=== PATIENT | male | born 1980 | race Caucasian/White ===

== ENCOUNTER 2018-07-14 14:29 | Inpatient (IN) | payer OTHER ==
[2018-07-14 15:14] VITALS: BMI 26.4
--- NOTE | 2018-07-14 17:55 | HP ---
COWS - Scale Resting Pulse: 1= [place] 81-100 Sweatin=Flushed/Facial Moisture Restless Observation: 1= Difficult to Sit Still Pupil Size: 0= Normal to Room Light Bone or Joint Aches: 1= Mild Discomfort Runny Nose/ Eye Tearin= Runny Nose/Eyes GI Upset > 30mins: 1= Stomach Cramp Tremor Observation: 2= Slight Tremor Visible Yawning Observation: 1= 1-2x During Session Anxiety or Irritability: 2=Irritable/Anxious Goose Flesh Skin: 0=Smooth Skin COWS Score: 13 Admission ROS S - [facility] Chief Complaint: opioid withdrawal symptoms Allergies/Adverse Reactions: Allergies Allergy/AdvReac Type Severity Reaction Status Date / Time No Known Allergies Allergy Verified 07/14/18 16:46 History of Present Illness: 37 yo male with hx of heroin (IV) and marijuana dependence is here seeking detox. Last detox two months at [facility]. PMHX: Hep C (untreated), anxiety. Denies suicidal / homicidal ideation or hx of suicide attempts. Overdose x April 2018. Denies hx of seizures or blackouts. Denies any legal troubles at this time. Longest period of sobriety three years during 2004 -2007. Exam Limitations: No Limitations - Ebola screening Have you traveled outside of the country in the last 21 days: No Have you had contact with anyone from an Ebola affected area: No Have you been sick,other than usual withdrawal symptoms: No Do you have a fever: No - Review of Systems Constitutional: Chills, Unintentional Wgt. Loss (15 lbs in past two months) EENT: reports: Nose Congestion Respiratory: reports: No Symptoms reported Cardiac: reports: No Symptoms Reported GI: reports: Poor Appetite, Poor Fluid Intake, Abdominal cramping : reports: No Symptoms Reported Musculoskeletal: reports: Back Pain Integumentary: reports: Pruritus Neuro: reports: No Symptoms reported Endocrine: reports: Increased Thirst Hematology: reports: No Symptoms Reported Psychiatric: reports: Orientated x3, Anxious Other Systems: Reviewed and Negative Patient History - Patient Medical History Hx Anemia: No Hx Asthma: No Hx Chronic Obstructive Pulmonary Disease (COPD): No Hx Cancer: No Hx Cardiac Disorders: No Hx Congestive Heart Failure: No Hx Hypertension: No Hx Pacemaker: No HX Cerebrovascular Accident: No Hx Seizures: No Hx Dementia: No Hx Diabetes: No Hx Gastrointestinal Disorders: No Hx Liver Disease: Yes (Hep C untreated ) Hx Genitourinary Disorders: No Hx Sexually Transmitted Disorders: No Hx Renal Disease (ESRD): No Hx Thyroid Disease: No Hx Human Immunodeficiency Virus (HIV): No (Last tested one year ago Neg results ) Hx Hepatitis C: Yes (untreated ) Hx Depression: Yes Hx Suicide Attempt: No Hx Bipolar Disorder: No Hx Schizophrenia: No - Patient Surgical History Past Surgical History: No Hx Neurologic Surgery: No Hx Cataract Extraction: No Hx Cardiac Surgery: No Hx Lung Surgery: No Hx Breast Surgery: No Hx Breast Biopsy: No Hx Abdominal Surgery: No Hx Appendectomy: No Hx Cholecystectomy: No Hx Genitourinary Surgery: No Hx Section: No Hx Orthopedic Surgery: No Anesthesia Reaction: No - PPD History Previous Implant?: Yes Documented Results: Negative w/o proof Implanted On Prior [facility] Admission?: No PPD to be Administered?: Yes - Smoking Cessation Smoking history: Current every day smoker Have you smoked in the past 12 months: Yes Aproximately how many cigarettes per day: 10 Hx Chewing Tobacco Use: No Initiated information on smoking cessation: Yes 'Breaking Loose' booklet given: 07/14/18 - Substance & Tx. History Hx Alcohol Use: No Hx Substance Use: Yes Substance Use Type: Heroin, Marijuana Hx Substance Use Treatment: Yes (Last detox two months at [facility]) - Substances Abused Heroin Route: Injection Frequency: Daily Amount used: 8-10 bags Age of first use: 21 Date of Last Use: 07/14/18 (4 AM ) Marijuana Route: Smoking Frequency: 1-2 times per week Amount used: $10 Age of first use: 12 Date of Last Use: 07/14/18 Family Disease History - Family Disease History Family History: Denies Admission Physical Exam BHS - Vital Signs Vital Signs: Vital Signs - 24 hr 07/14/18 15:12 Temperature 97.4 F L Pulse Rate 86 Respiratory 18 Rate Blood Pressure 109/59 L - Physical General Appearance: Yes: Disheveled, Mild Distress, Sweating, Anxious HEENTM: Yes: EOMI, Hearing grossly Normal, Normal ENT Inspection, Normocephalic , Normal Voice, LAURIE, Pharynx Normal, Tm's normal, Rhinorrhea Respiratory: Yes: Chest Non-Tender, Lungs Clear, Normal Breath Sounds, No Respiratory Distress, No Accessory Muscle Use Neck: Yes: Within Normal Limits Breast: Yes: Breast Exam Deferred Cardiology: Yes: Regular Rhythm, Regular Rate Abdominal: Yes: Normal Bowel Sounds, Non Tender, Flat, Soft Genitourinary: Yes: Within Normal Limits Back: Yes: Normal Inspection Extremities: Yes: Normal Capillary Refill, Normal Inspection, Normal Range of Motion, Non-Tender Neurological: Yes: money counter II-XII NML intact, Fully Oriented, Alert, Motor Strength 5/5, Depressed Affect Integumentary: Yes: Normal Color, Warm, Diaphoresis, Track Ch[place] (bilateral) Lymphatic: Yes: Within Normal Limits - Addiitonal Findings: bilateral antecubital fossa, no infection process - Diagnostic (1) Opioid dependence with withdrawal Current Visit: Yes Status: Acute (2) IVDU (intravenous drug user) Current Visit: Yes Status: Acute (3) Hepatitis C Current Visit: Yes Status: Chronic Qualifiers: Viral hepatitis chronicity: chronic Hepatic coma status: without hepatic coma Qualified Code(s): B18.2 - Chronic viral hepatitis C (4) Marijuana dependence Current Visit: Yes Status: Acute Cleared for Admission [facility] - Detox or Rehab [facility] Level of Care: Medically Managed Detox Regimen/Protocol: Methadone [facility] Breath Alcohol Content Breath Alcohol Content: 0 Urine Drug Screen - Results Drug Screen Negative: No Urine Drug Screen Results: THC-Marijuana, OPI-Opiates, BAR-Barbiturates, MTD- Methadone, FEN-Fentanyl
[2018-07-14] MEDS ORDERED: MENTHOL/PHENOL 1 EACH UD MM PRN (17:58)
[2018-07-14] MEDS ORDERED: NICOTINE POLACRILEX 2 MG GUM BC PRN (17:58)
[2018-07-14] MEDS ORDERED: LOPERAMIDE HCL 2 MG CAPSULE PO PRN (17:58)
[2018-07-14] MEDS ORDERED: P-EPHED 60MG/TRIPROLIDI 2.5MG TABLET PO PRN (17:58)
[2018-07-14] MEDS ORDERED: MAGNESIUM HYDROX 2400MG/30ML ORAL SUSPENSION 30 ML CUP PO PRN (17:58)
[2018-07-14] MEDS ORDERED: guaiFENesin/D-METHORPHAN HB 10 ML UNIT-DOSE CUPS PO PRN (17:58)
[2018-07-14] MEDS ORDERED: MAG HYDROX/AL HYDROX/SIMETH 30 ML UNIT-DOSE CUP PO PRN (17:58)
[2018-07-14] MEDS ORDERED: MAGNESIUM CITRATE 300 ML BOTTLE PO PRN (17:58)
[2018-07-14] MEDS ORDERED: METHADONE HCL 10 MG TABLET (FOR DETOX USE ONLY) PO ONE ×2 (18:30→23:00)
[2018-07-14] MEDS: diazePAM 5 MG TABLET PO PRN (18:57)
[2018-07-14] MEDS: THIAMINE HCL 100 MG TABLET (FP) PO SCH (22:19)
[2018-07-14] MEDS: MELATONIN 5 MG TABLETS PO PRN (22:20)
[2018-07-15 00:42] LABS: URINE APPEARANCE CLEAR; URINE BILIRUBIN NEGATIVE (<2.0 mg/dL); URINE COLOR YELLOW; URINE GLUCOSE (UA) NEGATIVE (NEGATIVE); URINE KETONE NEGATIVE (NEGATIVE); URINE LEUK ESTERASE NEGATIVE (NEGATIVE); URINE NITRITE NEGATIVE (NEGATIVE); URINE PROTEIN NEGATIVE (NEGATIVE)
[2018-07-15] MEDS: IBUPROFEN 400 MG TABLET (FP) PO PRN ×3 (06:36→22:57)
[2018-07-15] MEDS: diazePAM 5 MG TABLET PO PRN ×3 (06:36→22:15)
--- NOTE | 2018-07-15 07:39 | CONSULT ---
[facility] Psychiatric Consult - Data Date of interview: 07/15/18 Admission source: [facility] Identifying data: This is a 37 years old male, single, domiciled, unemployed, on PA support, with no psychiatric hospitalization history, with history of Heroin (IV), Marijuana and Nicotine dependence is here seeking detox and reportinf withdrawal symptoms.. Last detox two months at [facility]. Substance Abuse History: Smoking history: Current every day smoker. Have you smoked in the past 12 months: Yes. Aproximately how many cigarettes per day: 10. Hx Chewing Tobacco Use: No. Initiated information on smoking cessation: Yes. 'Breaking Loose' booklet given: 07/14/18. - Substance & Tx. History. Hx Alcohol Use: No. Hx Substance Use: Yes. Substance Use Type: Heroin, Marijuana. Hx Substance Use Treatment: Yes (Last detox two months at [facility] - Substances Abused. Heroin. Route: Injection. Frequency: Daily. Amount used: 8-10 bags. Age of first use: 21. Date of Last Use: (4 AM ). Marijuana. Route: Smoking. Frequency: 1-2 times per week. Amount used: $10. Age of first use: 12. Date of Last Use: 07/14/18 Medical History: HepC+ Psychiatric History: Ptient reports history of deporession, reports taking prior to admission: Lexapro 5mg poqd. Reports no psychiatric hospitalization history, reports no suicidal and homicidal history as well. Physical/Sexual Abuse/Trauma History: Denies Additional Comment: Lexapro 5mg poqd Mental Status Exam - Mental Status Exam Alert and Oriented to: Person Cognitive Function: Fair Patient Appearance: Unkempt Mood: Sad Affect: Flat Speech Pattern: Delayed Voice Loudness: Mildly Soft/Quiet Thought Process: Circumstantial Thought Disorder: Being Controlled Hallucinations: Denies Suicidal Ideation: Denies Homicidal Ideation: Denies Insight/Judgement: Fair Sleep: Difficulty falling asleep Appetite: Fair Muscle strength/Tone: Normal Gait/Station: Shuffling Additional Comments: Lexapro 5mg poqd Psychiatric Findings - Problem List ([place] 1, 2,3) (1) Nicotine dependence Current Visit: Yes Status: Acute (2) Nicotine dependence, chewing tobacco, in remission Current Visit: Yes Status: Acute (3) Marijuana dependence Current Visit: Yes Status: Acute (4) Opioid dependence with withdrawal Current Visit: Yes Status: Acute (5) Hepatitis C Current Visit: Yes Status: Chronic Qualifiers: Viral hepatitis chronicity: chronic Hepatic coma status: without hepatic coma Qualified Code(s): B18.2 - Chronic viral hepatitis C - Initial Treatment Plan Initial Treatment Plan: Lexapro 5mg poqd
[2018-07-15] MEDS ORDERED: METHADONE HCL 10 MG TABLET (FOR DETOX USE ONLY) PO ONE (10:00)
[2018-07-15] MEDS: PRENATAL VITAMINS W/ FOLIC ACID TABLET (FP) PO SCH (10:14)
[2018-07-15] MEDS: NICOTINE 14 MG/24 HOURS TOPICAL PATCH TD SCH (10:14)
[2018-07-15] MEDS: ESCITALOPRAM OXALATE 10 MG TABLET (FP) PO SCH (10:15)
[2018-07-15 10:22] LABS: HEMATOCRIT 38.9 % (35.4-49); HEMOGLOBIN 12.7 GM/dL (11.7-16.9); MCH 29.2 pg (25.7-33.7); MCHC 32.5 g/dl (32.0-35.9); MEAN CELL VOLUME 89.8 fl (80-96); MEAN PLT VOLUME 7.8 fl (7.5-11.1); PLATELET COUNT 342 K/MM3 (134-434); RBC 4.33 M/mm3 (4.00-5.60); RDW 14.1 % (11.9-15.9); WHITE BLOOD COUNT 5.1 K/mm3 (4.0-10.0)
[2018-07-15 10:27] LABS: ALBUMIN 3.2 g/dl (3.4-5.0); ALK PHOS 94 U/L (45-117); ANION GAP 9 MMOL/L (8-16); BILIRUBIN,TOTAL 0.7 mg/dL (0.2-1); BLOOD UREA NITROGEN 21 mg/dL (7-18); CALCIUM 8.6 mg/dL (8.5-10.1); CHLORIDE 105 mmol/L (98-107); CO2 27 mmol/L (21-32); CREATININE 0.9 mg/dL (0.55-1.3); GLUCOSE,RANDOM 109 mg/dL (74-106); SGOT/AST 53 U/L (15-37); SGPT/ALT 49 U/L (13-61); SODIUM 142 mmol/L (136-145)
--- NOTE | 2018-07-15 12:53 | PN ---
[facility] COWS - Scale Resting Pulse: 1= [place] 81-100 Sweatin= Chills/Flushing Restless Observation: 3= Extraneous Movement Pupil Size: 0= Normal to Room Light Bone or Joint Aches: 2= Severe Diffuse Aches Runny Nose/ Eye Tearin= Runny Nose/Eyes GI Upset > 30mins: 2= Nausea/Diarrhea Tremor Observation of Outstretched Hands: 2= Slight Tremor Visible Yawning Observation: 1= 1-2x During Session Anxiety or Irritability: 2=Irritable/Anxious Goose Flesh Skin: 0=Smooth Skin COWS Score: 16 S Progress Note (SOAP) Subjective: Feeling tired, interrupted sleep, sweating Objective: 07/15/18 12:52 Last Vital Signs Temp Pulse Resp BP Pulse Ox 97.7 F 85 18 102/54 L 07/15/18 09:34 07/15/18 09:34 07/15/18 09:34 07/15/18 09:34 Laboratory Tests 07/14/18 07/15/18 07/15/18 23:10 07:00 07:00 WBC 5.1 RBC 4.33 Hgb 12.7 Hct 38.9 MCV 89.8 MCH 29.2 MCHC 32.5 RDW 14.1 Plt Count 342 MPV 7.8 Sodium Potassium Chloride Carbon Dioxide Anion Gap BUN Creatinine Creat Clearance w eGFR Random Glucose Calcium Total Bilirubin AST ALT Alkaline Phosphatase Total Protein Albumin Urine Color Yellow Urine Appearance Clear Urine pH 5.0 Ur Specific [place] 1.027 Urine Protein Negative Urine Glucose (UA) Negative Urine Ketones Negative Urine Blood Negative Urine Nitrite Negative Urine Bilirubin Negative Urine Urobilinogen 2.0 Ur Leukocyte Esterase Negative RPR Titer HIV 1&2 Antibody Screen Negative HIV P24 Antigen Negative 07/15/18 07/15/18 07:00 07:00 WBC RBC Hgb Hct MCV MCH MCHC RDW Plt Count MPV Sodium 142 Potassium 4.0 Chloride 105 Carbon Dioxide 27 Anion Gap 9 BUN 21 H Creatinine 0.9 Creat Clearance w eGFR > 60 Random Glucose 109 H Calcium 8.6 Total Bilirubin 0.7 AST 53 H ALT 49 Alkaline Phosphatase 94 Total Protein 7.0 Albumin 3.2 L Urine Color Urine Appearance Urine pH Ur Specific [place] Urine Protein Urine Glucose (UA) Urine Ketones Urine Blood Urine Nitrite Urine Bilirubin Urine Urobilinogen Ur Leukocyte Esterase RPR Titer Nonreactive HIV 1&2 Antibody Screen HIV P24 Antigen Labs reviewed: bun 21 Assessment: 07/15/18 12:53 Withdrawal symptoms Noted with azotemia Plan: Continue detox Azotemia: encouraged PO water intake
[2018-07-15] MEDS: LIDOCAINE VISCOUS 2% ORAL/TOP 20 ML UNIT-DOSE CUP MM PRN ×2 (14:36→22:57)
--- NOTE | 2018-07-15 15:10 | EKG ---
Test Reason : Blood Pressure : / mmHG Vent. Rate : 088 BPM Atrial Rate : 088 BPM P-R Int : 146 ms QRS Dur : 092 ms QT Int : 380 ms P-R-T Axes : 057 034 037 degrees QTc Int : 459 ms NORMAL SINUS RHYTHM NORMAL ECG NO PREVIOUS ECGS AVAILABLE Confirmed by RADHA SMITH MD ([id number]) on 07/15/2018 3:09:57 PM Referred By: Confirmed By:RADHA SMITH MD
[2018-07-15] MEDS: THIAMINE HCL 100 MG TABLET (FP) PO SCH (22:15)
[2018-07-15] MEDS: ACETAMINOPHEN 325 MG TABLET (FP) PO PRN (22:16)
[2018-07-15] MEDS: MELATONIN 5 MG TABLETS PO PRN (22:18)
[2018-07-16] MEDS: PRENATAL VITAMINS W/ FOLIC ACID TABLET (FP) PO SCH (09:42)
[2018-07-16] MEDS: NICOTINE 14 MG/24 HOURS TOPICAL PATCH TD SCH (09:42)
[2018-07-16] MEDS: ESCITALOPRAM OXALATE 10 MG TABLET (FP) PO SCH (09:43)
[2018-07-16] MEDS ORDERED: METHADONE HCL 5 MG TABLET (FOR DETOX USE ONLY) PO ONE (10:00)
[2018-07-16] MEDS: diazePAM 5 MG TABLET PO PRN ×2 (10:40→22:12)
[2018-07-16] MEDS: LIDOCAINE VISCOUS 2% ORAL/TOP 20 ML UNIT-DOSE CUP MM PRN (10:40)
--- NOTE | 2018-07-16 15:00 | PN ---
[facility] COWS - Scale Resting Pulse: 1= [place] 81-100 Sweatin= Chills/Flushing Restless Observation: 3= Extraneous Movement Pupil Size: 0= Normal to Room Light Bone or Joint Aches: 2= Severe Diffuse Aches Runny Nose/ Eye Tearin= Runny Nose/Eyes GI Upset > 30mins: 2= Nausea/Diarrhea Tremor Observation of Outstretched Hands: 2= Slight Tremor Visible Yawning Observation: 0= None Anxiety or Irritability: 2=Irritable/Anxious Goose Flesh Skin: 0=Smooth Skin COWS Score: 15 BHS Progress Note (SOAP) Subjective: Sweating, interrupted sleep Objective: 07/16/18 14:58 Last Vital Signs Temp Pulse Resp BP Pulse Ox 98.0 F 85 19 103/59 L 07/16/18 14:24 07/16/18 14:24 07/16/18 14:24 07/16/18 14:24 Laboratory Tests 07/14/18 07/15/18 07/15/18 23:10 07:00 07:00 WBC 5.1 RBC 4.33 Hgb 12.7 Hct 38.9 MCV 89.8 MCH 29.2 MCHC 32.5 RDW 14.1 Plt Count 342 MPV 7.8 Sodium Potassium Chloride Carbon Dioxide Anion Gap BUN Creatinine Creat Clearance w eGFR Random Glucose Calcium Total Bilirubin AST ALT Alkaline Phosphatase Total Protein Albumin Urine Color Yellow Urine Appearance Clear Urine pH 5.0 Ur Specific [place] 1.027 Urine Protein Negative Urine Glucose (UA) Negative Urine Ketones Negative Urine Blood Negative Urine Nitrite Negative Urine Bilirubin Negative Urine Urobilinogen 2.0 Ur Leukocyte Esterase Negative RPR Titer HIV 1&2 Antibody Screen Negative HIV P24 Antigen Negative 07/15/18 07/15/18 07:00 07:00 WBC RBC Hgb Hct MCV MCH MCHC RDW Plt Count MPV Sodium 142 Potassium 4.0 Chloride 105 Carbon Dioxide 27 Anion Gap 9 BUN 21 H Creatinine 0.9 Creat Clearance w eGFR > 60 Random Glucose 109 H Calcium 8.6 Total Bilirubin 0.7 AST 53 H ALT 49 Alkaline Phosphatase 94 Total Protein 7.0 Albumin 3.2 L Urine Color Urine Appearance Urine pH Ur Specific [place] Urine Protein Urine Glucose (UA) Urine Ketones Urine Blood Urine Nitrite Urine Bilirubin Urine Urobilinogen Ur Leukocyte Esterase RPR Titer Nonreactive HIV 1&2 Antibody Screen HIV P24 Antigen Labs reviewed Assessment: 07/16/18 14:59 Withdrawal symptoms Plan: Continue detox Encouraged PO water intake
[2018-07-16] MEDS: THIAMINE HCL 100 MG TABLET (FP) PO SCH (22:12)
[2018-07-16] MEDS: MELATONIN 5 MG TABLETS PO PRN (22:12)
[2018-07-16] MEDS: ACETAMINOPHEN 325 MG TABLET (FP) PO PRN (22:13)
[2018-07-17] MEDS ORDERED: METHADONE HCL 5 MG TABLET (FOR DETOX USE ONLY) PO ONE (10:00)
--- NOTE | 2018-07-17 10:15 | PN ---
[facility] Progress Note Note: Vital Signs Temperature 97.5 F L 07/17/18 09:07 Pulse Rate 85 07/17/18 09:07 Respiratory Rate 18 07/17/18 09:07 Blood Pressure 107/67 07/17/18 09:07 O2 Sat by Pulse Oximetry (%) Laboratory Last Values WBC 5.1 K/mm3 (4.0-10.0) 07/15/18 07:00 RBC 4.33 M/mm3 (4.00-5.60) 07/15/18 07:00 Hgb 12.7 GM/dL (11.7-16.9) 07/15/18 07:00 Hct 38.9 % (35.4-49) 07/15/18 07:00 MCV 89.8 fl (80-96) 07/15/18 07:00 MCH 29.2 pg (25.7-33.7) 07/15/18 07:00 MCHC 32.5 g/dl (32.0-35.9) 07/15/18 07:00 RDW 14.1 % (11.9-15.9) 07/15/18 07:00 Plt Count 342 K/MM3 (134-434) 07/15/18 07:00 MPV 7.8 fl (7.5-11.1) 07/15/18 07:00 Sodium 142 mmol/L (136-145) 07/15/18 07:00 Potassium 4.0 mmol/L (3.5-5.1) 07/15/18 07:00 Chloride 105 mmol/L (98-107) 07/15/18 07:00 Carbon Dioxide 27 mmol/L (21-32) 07/15/18 07:00 Anion Gap 9 MMOL/L (8-16) 07/15/18 07:00 BUN 21 mg/dL (7-18) H 07/15/18 07:00 Creatinine 0.9 mg/dL (0.55-1.3) 07/15/18 07:00 Creat Clearance w eGFR > 60 (>60) 07/15/18 07:00 Random Glucose 109 mg/dL (74-106) H 07/15/18 07:00 Calcium 8.6 mg/dL (8.5-10.1) 07/15/18 07:00 Total Bilirubin 0.7 mg/dL (0.2-1) 07/15/18 07:00 AST 53 U/L (15-37) H 07/15/18 07:00 ALT 49 U/L (13-61) 07/15/18 07:00 Alkaline Phosphatase 94 U/L (45-117) 07/15/18 07:00 Total Protein 7.0 g/dl (6.4-8.2) 07/15/18 07:00 Albumin 3.2 g/dl (3.4-5.0) L 07/15/18 07:00 Urine Color Yellow 07/14/18 23:10 Urine Appearance Clear 07/14/18 23:10 Urine pH 5.0 (5.0-8.0) 07/14/18 23:10 Ur Specific [place] 1.027 (1.010-1.035) 07/14/18 23:10 Urine Protein Negative (NEGATIVE) 07/14/18 23:10 Urine Glucose (UA) Negative (NEGATIVE) 07/14/18 23:10 Urine Ketones Negative (NEGATIVE) 07/14/18 23:10 Urine Blood Negative (NEGATIVE) 07/14/18 23:10 Urine Nitrite Negative (NEGATIVE) 07/14/18 23:10 Urine Bilirubin Negative (<2.0 mg/dL) 07/14/18 23:10 Urine Urobilinogen 2.0 mg/dL (0.2-1.0) 07/14/18 23:10 Ur Leukocyte Esterase Negative (NEGATIVE) 07/14/18 23:10 RPR Titer Nonreactive (NONREACTIVE) 07/15/18 07:00 HIV 1&2 Antibody Screen Negative 07/15/18 07:00 HIV P24 Antigen Negative 07/15/18 07:00 c/o of sweats, chills, fatigue, body aches Aox3 anxious, no distress no adventitious breath sounds full ROM ambulating in the unit withdrawal sx increase ppoi fluids continue detox continue to monitor Patient to follow up with PCP upon discharge, patient with hx of Hep C no treatment.
[2018-07-17] MEDS: diazePAM 5 MG TABLET PO PRN (10:21)
[2018-07-17] MEDS: PRENATAL VITAMINS W/ FOLIC ACID TABLET (FP) PO SCH (10:21)
[2018-07-17] MEDS: NICOTINE 14 MG/24 HOURS TOPICAL PATCH TD SCH (10:22)
[2018-07-17] MEDS: ESCITALOPRAM OXALATE 10 MG TABLET (FP) PO SCH (10:22)
[2018-07-17] MEDS: LIDOCAINE VISCOUS 2% ORAL/TOP 20 ML UNIT-DOSE CUP MM PRN (13:18)
[2018-07-17] MEDS: THIAMINE HCL 100 MG TABLET (FP) PO SCH (22:26)
[2018-07-17] MEDS: MELATONIN 5 MG TABLETS PO PRN (22:27)
[2018-07-18] MEDS: PRENATAL VITAMINS W/ FOLIC ACID TABLET (FP) PO SCH (09:32)
[2018-07-18] MEDS: NICOTINE 14 MG/24 HOURS TOPICAL PATCH TD SCH (09:33)
[2018-07-18] MEDS: ESCITALOPRAM OXALATE 10 MG TABLET (FP) PO SCH (09:33)
[2018-07-18] MEDS ORDERED: METHADONE HCL 10 MG TABLET (FOR DETOX USE ONLY) PO ONE (10:00)
--- NOTE | 2018-07-18 17:54 | PN ---
BHS Progress Note (SOAP) Subjective: Restless, anxious Objective: 07/18/18 17:53 Last Vital Signs Temp Pulse Resp BP Pulse Ox 97.1 F L 70 18 98/50 L 07/18/18 13:56 07/18/18 13:56 07/18/18 13:56 07/18/18 13:56 Hypotension noted Laboratory Tests 07/14/18 07/15/18 07/15/18 23:10 07:00 07:00 WBC 5.1 RBC 4.33 Hgb 12.7 Hct 38.9 MCV 89.8 MCH 29.2 MCHC 32.5 RDW 14.1 Plt Count 342 MPV 7.8 Sodium Potassium Chloride Carbon Dioxide Anion Gap BUN Creatinine Creat Clearance w eGFR Random Glucose Calcium Total Bilirubin AST ALT Alkaline Phosphatase Total Protein Albumin Urine Color Yellow Urine Appearance Clear Urine pH 5.0 Ur Specific [place] 1.027 Urine Protein Negative Urine Glucose (UA) Negative Urine Ketones Negative Urine Blood Negative Urine Nitrite Negative Urine Bilirubin Negative Urine Urobilinogen 2.0 Ur Leukocyte Esterase Negative RPR Titer HIV 1&2 Antibody Screen Negative HIV P24 Antigen Negative 07/15/18 07/15/18 07:00 07:00 WBC RBC Hgb Hct MCV MCH MCHC RDW Plt Count MPV Sodium 142 Potassium 4.0 Chloride 105 Carbon Dioxide 27 Anion Gap 9 BUN 21 H Creatinine 0.9 Creat Clearance w eGFR > 60 Random Glucose 109 H Calcium 8.6 Total Bilirubin 0.7 AST 53 H ALT 49 Alkaline Phosphatase 94 Total Protein 7.0 Albumin 3.2 L Urine Color Urine Appearance Urine pH Ur Specific [place] Urine Protein Urine Glucose (UA) Urine Ketones Urine Blood Urine Nitrite Urine Bilirubin Urine Urobilinogen Ur Leukocyte Esterase RPR Titer Nonreactive HIV 1&2 Antibody Screen HIV P24 Antigen Labs reviewed Assessment: 07/18/18 17:53 Withdrawal symptoms Noted with hypotension Plan: Continue detox Hypotension: asymptomatic, encouraged PO water intake
[2018-07-18] MEDS: THIAMINE HCL 100 MG TABLET (FP) PO SCH (21:07)
[2018-07-18] MEDS: MELATONIN 5 MG TABLETS PO PRN (21:07)
[2018-07-19] MEDS ORDERED: METHADONE HCL 5 MG TABLET (FOR DETOX USE ONLY) PO ONE (06:00)
[2018-07-19 06:25] VITALS: BP 99/65; PULSE 64; TEMP 97.6
--- NOTE | 2018-07-19 12:11 | DS ---
[facility] Detox Discharge Summary Admission Date: 07/14/18 Discharge Date: 07/19/18 - History Present History: Cannabis Dependence, Opioid Dependence Pertinent Past History: Cannabis dependence Opioid dependence Nicotine dependence Hepatitis C - Physical Exam Results Vital Signs: Vital Signs Temperature 97.6 F 07/19/18 06:25 Pulse Rate 64 07/19/18 06:25 Respiratory Rate 18 07/19/18 06:25 Blood Pressure 99/65 07/19/18 06:25 O2 Sat by Pulse Oximetry (%) Pertinent Admission Physical Exam Findings: Withdrawal symptoms Laboratory Tests 07/14/18 07/15/18 07/15/18 23:10 07:00 07:00 WBC 5.1 RBC 4.33 Hgb 12.7 Hct 38.9 MCV 89.8 MCH 29.2 MCHC 32.5 RDW 14.1 Plt Count 342 MPV 7.8 Sodium Potassium Chloride Carbon Dioxide Anion Gap BUN Creatinine Creat Clearance w eGFR Random Glucose Calcium Total Bilirubin AST ALT Alkaline Phosphatase Total Protein Albumin Urine Color Yellow Urine Appearance Clear Urine pH 5.0 Ur Specific [place] 1.027 Urine Protein Negative Urine Glucose (UA) Negative Urine Ketones Negative Urine Blood Negative Urine Nitrite Negative Urine Bilirubin Negative Urine Urobilinogen 2.0 Ur Leukocyte Esterase Negative RPR Titer HIV 1&2 Antibody Screen Negative HIV P24 Antigen Negative 07/15/18 07/15/18 07:00 07:00 WBC RBC Hgb Hct MCV MCH MCHC RDW Plt Count MPV Sodium 142 Potassium 4.0 Chloride 105 Carbon Dioxide 27 Anion Gap 9 BUN 21 H Creatinine 0.9 Creat Clearance w eGFR > 60 Random Glucose 109 H Calcium 8.6 Total Bilirubin 0.7 AST 53 H ALT 49 Alkaline Phosphatase 94 Total Protein 7.0 Albumin 3.2 L Urine Color Urine Appearance Urine pH Ur Specific [place] Urine Protein Urine Glucose (UA) Urine Ketones Urine Blood Urine Nitrite Urine Bilirubin Urine Urobilinogen Ur Leukocyte Esterase RPR Titer Nonreactive HIV 1&2 Antibody Screen HIV P24 Antigen Labs reviewed - Treatment Hospital Course: Detox Protocol Followed, Detoxed Safely, Responded well, Discharged Condition Good - Medication Discharge Medications: Ambulatory Orders Escitalopram Oxalate [Lexapro -] 5 mg PO DAILY #30 tablet 07/15/18 - Diagnosis (1) Azotemia Status: Acute (2) Depression Status: Chronic (3) Marijuana dependence Status: Chronic (4) Nicotine dependence Status: Chronic (5) Opioid dependence with withdrawal Status: Acute (6) Hepatitis C Status: Chronic Qualifiers: Viral hepatitis chronicity: chronic Hepatic coma status: without hepatic coma Qualified Code(s): B18.2 - Chronic viral hepatitis C - AMA Did Patient Leave Against Medical Advice: No (F/U with PCP within 1-2 weeks)
== END 2018-07-19 08:50 | disposition home or self-care (01) | DRG 773 ==
LOC: YASAS 14:29 → Y3N 17:32
PROC: HZ2ZZZZ Detoxification Services for Substance Abuse Treatment (ICD-10-PCS; principal; 2018-07-14)
DX: F11.23 Opioid dependence with withdrawal (principal); F12.20 Cannabis dependence, uncomplicated; F17.210 Nicotine dependence, cigarettes, uncomplicated; F32.9 Major depressive disorder, single episode, unspecified; B18.2 Chronic viral hepatitis C; R79.89 Other specified abnormal findings of blood chemistry; Z59.0 Homelessness
CPT/HCPCS: 36415; 80053; 81003; 85027; 86593; 87389; 93005; 93010